=== PATIENT | male | born 1975 | race Caucasian/White ===

== ENCOUNTER → 2016-12-22 | Outpatient (CLI) | payer BC ==
--- NOTE | 2016-12-22 15:24 | XR ---
EXAMINATION TYPE: XR cervical spine comp DATE OF EXAM: 12/22/2016 TECHNIQUE: Frontal, lateral, oblique, swimmers, and open mouth view of the cervical spine are obtaine d. HISTORY: [id number] paresthesia of skin COMPARISON: None FINDINGS: The cervical spine is visualized in its entirety from C1 thru the top of T1 level, it is s atisfactory in alignment without evidence of acute fracture or dislocation. There is straightening of the usual cervical lordosis. Mild intervertebral disc space narrowing and endplate sclerosis is seen at C5-C6 and C6-C7. Minimal uncovertebral hypertrophy is present at these levels. No discrete neurof oraminal narrowing is seen radiographically. The pre-vertebral soft tissue appears within normal limi ts. The C1-C2 articulation is within normal limits on the open mouth view. The oblique images are w ithin normal limits. IMPRESSION: 1. No acute fracture or dislocation is seen in the cervical spine. 2. Mild degenerative disc disease at C5-C7. 3. Straightening of the cervical lordosis which may relate to muscular strain or patient positioning.
== END | disposition home or self-care (01) ==
LOC: RADXRYALE 15:09
PROVIDERS: ATTEND Family Medicine
DX: M50.322 Other cervical disc degeneration at C5-C6 level (principal); M40.202 Unspecified kyphosis, cervical region; R20.2 Paresthesia of skin
CPT/HCPCS: 72050

== ENCOUNTER → 2017-03-12 | Outpatient (CLI) | payer OTHER ==
--- NOTE | 2017-03-12 09:44 | XR ---
EXAMINATION TYPE: XR knee 4V RT DATE OF EXAM: 03/12/2017 CLINICAL HISTORY: Knee swelling for 4 weeks with no known injury TECHNIQUE: Three views of the right knee are obtained. COMPARISON: None. FINDINGS: There is no acute fracture/dislocation evident in right knee. Minimal medial joint space n arrowing and tibial plateau sclerosis are noted. The remaining tricompartment joint spaces appear wit hin normal limits. The overlying soft tissue appears unremarkable. Small suprapatellar joint effusio n is noted. Osseous mineralization is within normal limits. IMPRESSION: 1. There is no acute fracture or dislocation in the right knee. 2. Small suprapatellar joint effusion. 3. Mild unicompartmental, medial compartment, arthrosis.
== END ==
LOC: RADXRYALE 09:05
PROVIDERS: ATTEND Family Medicine
DX: M17.11 Unilateral primary osteoarthritis, right knee (principal)

== ENCOUNTER → 2021-08-13 | Outpatient (CLI) | payer BC ==
--- NOTE | 2021-08-13 14:45 | CT ---
EXAMINATION TYPE: CT chest wo con DATE OF EXAM: 08/13/2021 INDICATION: SOB post covid CT DLP: 227.9 mGy.cm Automated Exposure Control for Dose Reduction was Utilized. TECHNIQUE AND CONTRAST: CT scan of the chest without IV contrast administration. COMPARISON: No previous CT scan is available for comparison. FINDINGS: 3 mm nodule is seen in the left lower lobe (image #40, series 4). 2 mm nodule is seen in the right sana ng apex. Unremarkable lungs otherwise. Patent central airways. No pleural or pericardial effusion. No cardiomegaly. The ascending aorta measures 3.3 cm. Subcentimeter bilateral axillary lymph nodes, n onspecific. No pathologically enlarged lymph nodes in the chest by this nonenhanced CT scan. Enlarged spleen measuring about 14 cm in AP dimension, please correlate clinically. Tiny sclerotic fo cus is seen within the axillary portion of the right sixth rib without bone destruction, nonspecific. No aggressive bone lesion. IMPRESSION: Few pulmonary nodules as described above, requiring no further follow-up if low risk patient. If high risk patient, optional follow-up CT scan in 12 months can be considered. Unremarkable lungs otherwis e. Other incidental findings as described above.
== END | disposition home or self-care (01) ==
LOC: RADCTMAIN 14:14
PROVIDERS: ATTEND Family Medicine
DX: U09.9 Post COVID-19 condition, unspecified (principal); R91.8 Other nonspecific abnormal finding of lung field
CPT/HCPCS: 71250

== ENCOUNTER → 2024-03-06 | Outpatient (CLI) | payer BC ==
--- NOTE | 2024-03-06 11:42 | XR ---
EXAMINATION TYPE: XR lumbosacral spine min 4V DATE OF EXAM: 03/06/2024 11:35 AM INDICATION: Patient age:Male; 48 years old; Reason for study: [id number] LBP,IDD; [facility]. COMPARISON: None TECHNIQUE: Frontal, lateral , bilateral oblique and coned in L5-S1 lateral views of the spine. 5 view s. FINDINGS: There are 5 lumbar type vertebral bodies identified. No evidence of any acute osseous patho logy. No evidence of loss of vertebral body height is seen. Minimal levocurvature of the lumbar spin e with apex at L3. Mild retrolisthesis of L3 on L4. Multilevel disc space narrowing with endplate scl erosis and slight ptosis. Most pronounced at L5-S1. Multilevel facet arthropathy lower lumbar spine. IMPRESSION: 1. No acute process. 2. Mild multilevel degenerative disc disease and facet arthropathy. 3. Mild retrolisthesis of L3 on L4. [facility], , 03/06/2024 11:40 AM
== END | disposition home or self-care (01) ==
LOC: RADXRYALE 11:19
PROVIDERS: ATTEND Family Medicine
DX: M51.360 Other intervertebral disc degeneration, lumbar region with discogenic back pain only (principal); M47.817 Spondylosis without myelopathy or radiculopathy, lumbosacral region; M43.16 Spondylolisthesis, lumbar region
CPT/HCPCS: 72110

== ENCOUNTER → 2024-03-15 | Outpatient (CLI) | payer BC ==
--- NOTE | 2024-03-15 18:19 | CT ---
EXAMINATION TYPE: CT abdomen pelvis wo con DATE OF EXAM: 03/15/2024 5:48 PM COMPARISON: None CLINICAL INDICATION: Male, 48 years old with history of PELVIC AND PERINEAL PANIN R102; groin pain TECHNIQUE: Axial CT abdomen pelvis wo con;Sagittal and coronal reformats were created on a separate workstation. Contrast used: mL of , (none if empty) Oral contrast used: without Oral Contrast (none if empty) CT DLP: 360 mGycm, Automated exposure control for dose reduction was used. FINDINGS: LOWER CHEST: Unremarkable ABDOMEN LIVER: Unremarkable GALLBLADDER AND BILE DUCTS: Unremarkable. PANCREAS: Unremarkable. SPLEEN: Unremarkable. ADRENAL GLANDS: Unremarkable. KIDNEYS AND URETERS: No evidence of hydronephrosis or renal calculus. The ureters are unremarkable. PELVIS BLADDER: No evidence for wall thickening or mass given limitations of exam. REPRODUCTIVE: Unremarkable. ABDOMEN & PELVIS STOMACH AND BOWEL: No evidence of bowel obstruction. Appendix is normal. Few scattered colonic divert icula. PERITONEUM/RETROPERITONEUM: No evidence of pneumoperitoneum or free fluid. VASCULATURE: No evidence of aortic aneurysm. MUSCULOSKELETAL: No acute osseous abnormalities LYMPH NODES: No gross evidence for lymphadenopathy. SOFT TISSUE/ABDOMINAL WALL: Tiny fat-containing umbilical hernia. IMPRESSION: 1. No evidence for acute process. No obstructive uropathy or renal calculus. The appendix is normal. 2. Colonic diverticulosis. [facility], , 03/15/2024 6:16 PM
== END | disposition home or self-care (01) ==
LOC: RADCTMAIN 17:19
PROVIDERS: ATTEND Family Medicine
DX: K57.30 Diverticulosis of large intestine without perforation or abscess without bleeding (principal); K42.9 Umbilical hernia without obstruction or gangrene
CPT/HCPCS: 74176

== ENCOUNTER → 2024-03-18 | Outpatient (CLI) | payer BC ==
--- NOTE | 2024-03-18 13:05 | MR ---
EXAMINATION TYPE: MR lumbar spine wo con DATE OF EXAM: 03/18/2024 12:57 PM COMPARISON: None. CLINICAL INDICATION: Male, 48 years old with history of M54.50 LOW BACK PAIN, UNSPECI M51.360 M05.89 R10.2, Low back pain for 2 months. IV Contrast: cc (None if empty) TECHNIQUE: Multiplanar, multisequence images of the lumbar spine were acquired without IV contrast. L1-L2: Normal disc appearance without desiccation. No herniation, protrusion or disc bulging. No ca nal stenosis is present. Foramina are patent bilaterally. L2-L3: Normal disc appearance without desiccation. No herniation, protrusion or disc bulging. No ca nal stenosis is present. Foramina are patent bilaterally. L3-L4: Moderate disc desiccation and mild posterior disc bulge. No evidence of disc herniation or mirtha tral stenosis. No evidence for foraminal encroachment. L4-L5: Normal disc appearance without desiccation. No herniation, protrusion or disc bulging. No ca nal stenosis is present. Foramina are patent bilaterally. Mild facet joint arthropathy. L5-S1: Severe degenerative disc disease. Modic type I endplate changes. Mild posterior disc bulge wit hout herniation or central stenosis. Schmorl node inferior endplate L5. Lumbar segments are intact. No paraspinal masses are identified. Conus medullaris has a normal appe arance. IMPRESSION: 1. Degenerative disc disease as noted. [facility], , 03/18/2024 1:02 PM
== END | disposition home or self-care (01) ==
LOC: RADMRIMAIN 12:21
PROVIDERS: ATTEND Family Medicine
DX: M51.360 Other intervertebral disc degeneration, lumbar region with discogenic back pain only (principal); M05.89 Other rheumatoid arthritis with rheumatoid factor of multiple sites; R10.2 Pelvic and perineal pain
CPT/HCPCS: 72148

== ENCOUNTER → 2024-10-09 | Outpatient (CLI) | payer BC ==
--- NOTE | 2024-10-09 09:23 | XR ---
EXAMINATION TYPE: XR ankle complete RT DATE OF EXAM: 10/09/2024 9:17 AM COMPARISON: None. CLINICAL INDICATION: Male, 49 years old with history of [id number] RT ANKLE PAIN, pain TECHNIQUE: 3 view(s) obtained. FINDINGS: Ankle mortise is intact. There is mild soft tissue swelling over the lateral malleolus. No acute frac tures or dislocations evident. Follow up exams can be performed 7-10 days from acute trauma for continued pain IMPRESSION: 1. Mild soft tissue swelling lateral malleolus. 2. No acute osseous abnormality. [facility], , 10/09/2024 9:20 AM
== END | disposition home or self-care (01) ==
LOC: RADXRYALE 09:06
PROVIDERS: ATTEND Physician Assistant Medical
DX: M25.571 Pain in right ankle and joints of right foot (principal); M79.89 Other specified soft tissue disorders